=== PATIENT | female | born 1960 | race Two or more races ===

== ENCOUNTER 2018-04-06 07:52 | Outpatient (CLI) | payer OTHER | END 2018-04-06 08:05 | disposition home or self-care (01) | LOC: MAMO-SONO 07:52 | DX: N60.12 Diffuse cystic mastopathy of left breast (principal); N60.11 Diffuse cystic mastopathy of right breast ==

== ENCOUNTER → 2020-07-16 | Outpatient (CLI) | payer OTHER | END | disposition home or self-care (01) | LOC: SONOGRAMA 10:30 | PROVIDERS: ATTEND Obstetrics & Gynecology Gynecology | DX: N83.292 Other ovarian cyst, left side (principal); R10.2 Pelvic and perineal pain ==

== ENCOUNTER 2020-08-01 14:36 | Outpatient (CLI) | payer OTHER | END 2020-08-01 14:57 | disposition home or self-care (01) | LOC: MAMO-SONO 14:36 | PROVIDERS: ATTEND Obstetrics & Gynecology Gynecology | DX: Z12.31 Encounter for screening mammogram for malignant neoplasm of breast (principal); N60.11 Diffuse cystic mastopathy of right breast; N60.12 Diffuse cystic mastopathy of left breast; N64.0 Fissure and fistula of nipple ==

== ENCOUNTER 2020-08-07 13:28 | Outpatient (CLI) | payer OTHER | END 2020-08-07 13:44 | disposition home or self-care (01) | LOC: NUCLEAR 13:28 | PROVIDERS: ATTEND Obstetrics & Gynecology Gynecology | DX: M81.0 Age-related osteoporosis without current pathological fracture (principal) ==

== ENCOUNTER 2021-10-09 14:08 | Outpatient (CLI) | payer OTHER | END 2021-10-10 09:36 | disposition home or self-care (01) | LOC: MAMO-SONO 14:08 | PROVIDERS: ATTEND Obstetrics & Gynecology Gynecology | DX: N60.11 Diffuse cystic mastopathy of right breast (principal); N60.12 Diffuse cystic mastopathy of left breast; R10.32 Left lower quadrant pain; D27.1 Benign neoplasm of left ovary; N83.209 Unspecified ovarian cyst, unspecified side ==

== ENCOUNTER 2023-03-01 09:28 | Outpatient (CLI) | payer OTHER | END 2023-03-01 10:45 | disposition home or self-care (01) | LOC: MAMO-SONO 09:28 | DX: Z12.31 Encounter for screening mammogram for malignant neoplasm of breast (principal); Z12.39 Encounter for other screening for malignant neoplasm of breast; M25.532 Pain in left wrist; M25.531 Pain in right wrist; M79.642 Pain in left hand; M79.641 Pain in right hand ==

== ENCOUNTER 2023-03-24 13:28 | Outpatient (CLI) | payer OTHER | END 2023-03-24 13:32 | disposition home or self-care (01) | LOC: NUCLEAR 13:28 | DX: M81.0 Age-related osteoporosis without current pathological fracture (principal) ==

== ENCOUNTER 2023-04-19 13:31 | Outpatient (CLI) | payer OTHER | END 2023-04-19 14:06 | disposition home or self-care (01) | LOC: SONOGRAMA 13:31 | DX: N60.11 Diffuse cystic mastopathy of right breast (principal); N60.12 Diffuse cystic mastopathy of left breast ==

== ENCOUNTER → 2025-02-15 | Outpatient (CLI) | payer OTHER | END | disposition home or self-care (01) | LOC: MAMO-SONO 12:09 | PROVIDERS: ATTEND Internal Medicine | DX: N60.29 Fibroadenosis of unspecified breast (principal) ==

== ENCOUNTER → 2025-03-30 10:57 | Outpatient (CLI) | payer OTHER | END | disposition home or self-care (01) | LOC: NUCLEAR 10:57 | PROVIDERS: ATTEND Internal Medicine | DX: Z13.820 Encounter for screening for osteoporosis (principal); M81.0 Age-related osteoporosis without current pathological fracture ==